=== PATIENT | male | born 1985 | race Caucasian/White ===

== ENCOUNTER → 2021-08-12 14:44 | Outpatient (CLI) | payer BC, SELFPAY ==
[2021-08-12 15:24] LABS: COVID19 -Nasal RAPID POSITIVE (Negative)
== END ==
PROVIDERS: Visit Provider Physician Assistant
DX: U07.1 COVID-19 (principal); Z20.822 Contact with and (suspected) exposure to COVID-19
CPT/HCPCS: 87635